=== PATIENT | female | born 1945 | race Caucasian/White ===

== ENCOUNTER 2016-08-18 08:10 | Day surgery (SDC) | payer BC ==
[~2016-08-18 08:10] MED LIST: AMLODIPINE BES2.5 MG PO; ASPIR 8181 M1 PO; CINNAMON500 MG PO; CRANBERRY500 M2 PO; CYANOCOBALAM1000 MCG PO; DONEPEZIL HCL5 MG PO; FISH OIL 1,0001 EAC7 PO; FOLIC ACID1 MG PO; GLIPIZIDE5 MG PO; HYDRALAZINE HCL25 MG PO; PANTOPRAZOLE SO40 MG PO; PLAVIX75 MG PO; PRAVASTATIN SOD80 MG PO; VITAMIN D31000 UNI2 PO; ZOLOFT100 MG PO
[2016-08-18 09:03] LABS: POINT-OF-CARE METER ID UU13113696
[2016-08-18 10:13] LABS: METH RESISTANT S AUREUS PCR NEGATIVE (NEGATIVE)
[2016-08-18 10:24] LABS: PROBE CHECK PASS; SPECIMEN PROCESSING CONTROL PASS
== END 2016-08-18 10:30 | disposition home or self-care (01) ==
LOC: CATH 08:10
PROVIDERS: Surgery
DX: T82.898A Other specified complication of vascular prosthetic devices, implants and grafts, initial encounter (principal); Y83.2 Surgical operation with anastomosis, bypass or graft as the cause of abnormal reaction of the patient, or of later complication, without mention of misadventure at the time of the procedure; Z99.2 Dependence on renal dialysis; N18.6 End stage renal disease
CPT/HCPCS: 82948; 87641; C1769; C1894; J1644; J2250; J3010

== ENCOUNTER 2017-04-14 12:14 | Day surgery (SDC) | payer BC ==
[~2017-04-14] VITALS: Ht 149.9 cm; Wt 60.8 kg
[2017-04-14 14:24] LABS: POINT-OF-CARE METER ID UU13113819; POINT-OF-CARE USER ID 515036437
[2017-04-14 15:07] LABS: METH RESISTANT S AUREUS PCR POSITIVE (NEGATIVE)
[2017-04-14 15:21] LABS: PROBE CHECK PASS
== END 2017-04-14 14:50 | disposition home or self-care (01) ==
LOC: CATH 12:14
PROVIDERS: Surgery
PROC: 057Y3ZZ Dilation of Upper Vein, Percutaneous Approach (ICD-10-PCS; principal; 2017-04-14)
DX: T82.898A Other specified complication of vascular prosthetic devices, implants and grafts, initial encounter (principal); N18.6 End stage renal disease; Z99.2 Dependence on renal dialysis; Z79.02 Long term (current) use of antithrombotics/antiplatelets
CPT/HCPCS: 82948; 87641; C1725; C1769; C1894; J1644

== ENCOUNTER 2017-04-19 12:53 | Day surgery (SDC) | payer BC ==
[2017-04-19 14:37] LABS: METH RESISTANT S AUREUS PCR POSITIVE (NEGATIVE)
[2017-04-19 14:38] LABS: PROBE CHECK PASS
== END 2017-04-19 15:55 | disposition home or self-care (01) ==
LOC: CATH 12:53
PROVIDERS: Surgery
DX: T82.590A Other mechanical complication of surgically created arteriovenous fistula, initial encounter (principal); N18.6 End stage renal disease; Z99.2 Dependence on renal dialysis
CPT/HCPCS: 87641; C1725; C1769; C1894; J1644; J2250; J3010